=== PATIENT | male | born 1950 | race Caucasian/White ===

== ENCOUNTER 2023-05-21 08:48 | Day surgery (SDC) | payer MEDICARE, BC, SELFPAY ==
[2023-05-21] VITALS (11 sets, daily range): BP systolic 125–160; BP diastolic 76–106; PULSE 65–82; RESP 16–18; TEMP 36.1–37.2; O2SAT 95–100; BMI 29.7
[2023-05-21] MEDS: LACTATED RINGERS 500 ML 500 ML 30 ML IV ×2 (09:15→12:47)
[2023-05-21] MEDS: SODIUM CHLORIDE 0.9 % (FLUSH) 10 ML SYRINGE IVF (09:49)
--- NOTE | 2023-05-21 10:59 | SUR.PREOP ---
TIME?OUT:?1055 PT/RN/MARCI?VERIFICATION?OF?SURGICAL?SITE,?PROCEDURE,?AND?CONSENT OBTAINED?PRIOR?TO?INVASIVE?PROCEDURE.left foot r beti apple mda pt consent
[2023-05-21] MEDS: CEFAZOLIN 2 GM INJ IVP (11:25)
[2023-05-21] MEDS: fentaNYL 100 MCG/2 ML inj IVP (11:32)
[2023-05-21] MEDS: MIDAZOLAM HCL 1 MG/ML inj IVP (11:32)
--- NOTE | 2023-05-21 11:34 | CRLHL7_ITS ---
For Patients: As a result of the Century Cures Act, medical imaging exams and procedure reports are released immediately into your electronic medical record. You may view this report before your referring provider. If you have questions, please contact your health care provider. Fluoroscopy was provided intraoperatively with 1 spot film acquired and 42 seconds of fluoroscopy time utilized. Spot film demonstrates postsurgical changes related to Achilles tendon repair. Dictated by Jon Talavera MD @ 05/23/2023 2:52:47 PM (Electronically Signed)
--- NOTE | 2023-05-21 12:25 | W.PM.NB ---
Nerve Block Nerve Block Time Seen by Provider: 10:59 Date Seen: 05/21/23 Type of block requested by surgeon for post-operative analgesia: popliteal Side: left Time out performed: Yes Verification of patient name: Yes Verification of date of : Yes Site marking: site marked Name of person performing procedure: Justino Continuous monitoring Was continuous monitoring of O2 sat, B/P, night monitor, recorded every 15 minutes?: Yes Procedure Checklist: sterile prep, needles and gloves Ultrasound guided. Images saved: Yes Medications given in 5ml increments after negative aspiration: Ropivicaine %: 0.5 mL: 20 Needle gauge: 22 Patient tolerated procedure well: Yes Additional comments: Needle noted adjacent to nerve Block Charges Block Charge (with Pro Fee): Sciatic Nerve Use of Ultrasound Machine for Block: Yes- US Guidance/pain block
--- NOTE | 2023-05-21 12:26 | W.ANESCHARGE ---
Anesthesia Charges Start Date/Time Anesthesia Start Date: 05/21/23 Anesthesia Start Time: 11:19 Stop Date/Time Anesthesia Stop Date: 05/21/23 Anesthesia Stop Time: 14:05 Summary Extremes of Age - Over 70 or under 1: MDA
--- NOTE | 2023-05-21 14:05 | P.PCN_ITS ---
Procedure Note Date Seen: 05/21/23 Date of procedure: 05/21/23 Will [facility] bill your pro fee for this procedure?: No Pre-op diagnosis: 1. Achilles tendon rupture left Post-op diagnosis: same Procedure: 1. primary repair Achilles tendon rupture left 2. FHL tendon transfer left Procedure Description: Materials: Arthrex Achilles midsubstance repair kit x1, FHL transfer kit x1. Hemostasis: Thigh tourniquet 300 mm Hg Complications: None apparent Indications for surgery: Patient had been healing with Achilles tendon rupture but unfortunately he re-ruptured the tendon necessitating surgical intervention. I reviewed the procedure, recovery, expectations potential complications. This includes but is not limited to: Poor wound healing infection, continued pain, potential need for revision surgery, deep venous thrombosis, pulmonary embolism possible . He understands risks and written consent was obtained. Site was marked. Procedure in detail: Patient was brought the operating room and placed under general anesthesia. He was then log rolled into a prone position on the operating room table. His prepped and draped in a sterile fashion. Standard time-out protocol followed. Left limb was then exsanguinated and the thigh tourniquet inflated. The rupture site was easily palpable 5 cm proximal to the insertion. Linear incision was made directly over the rupture site then gently curved medial extending down onto the medial posterior calcaneus. Incision was carried down through skin subcutaneous tissues. Paratenon was incised and the rupture site identified. Proximal aspect of the tendon had scarred down to the paratenon and this was freed up. Distal stump of the tendon was freshened with a 15 blade. The pars jig was placed through the proximal aspect incision and captured proximal tendon. FiberTape was passed through the jig 1 through 7. Two locking FiberTape sutures as well as 1 nonlocking FiberTape were placed. The suture Passer was placed distally and run through the distal tendon exiting proximally in the central portion of the tendon. The medial sutures were brought down through the tunnel. Stab incision was made with the posterior lateral calcaneus and the suture Passer was placed distally and run through the distal tendon exiting proximally the central portion of the tendon. The lateral sutures were then brought down through the tunnel. Holes were then drilled with anchoring sites they were tapped. With the foot maximally plantar flexed the medial sutures were brought into the osseous tunnel and the SwiveLock inserted. The lateral sutures were then tensioned appropriately and were brought into the osseous tunnel and the SwiveLock anchor was then placed. the rupture site was now in the appropriate approximation. At the rupture site 0 FiberTape was used to place a running nonlocking suture to create additional strength at the rupture site. Next the deep fascia overlying the FHL muscle belly was incised and the muscle was followed distally releasing the fascia until the tendon was identified. With the foot and hallux maximally plantar flexed the tendon was transected with a tenotomy scissors. Guide pin was placed 1 cm anterior to the Achilles insertion on the dorsal calcaneus and angled 1 cm distal to the plantar tubercle. 6.5 mm drill was then used to over drill the guide pin proximally 25 mm. Whipstitch was placed through the FHL tendon and then run through the button. The button was then shuttled down to the plantar calcaneus and visualized under C-arm to be in the appropriate position. The tendon was then tensioned down into the drill hole appropriately. Suture was then tied to the FHL tendon at the drill hole. A 6.5 mm bio tenodesis screw was then placed. Wound was thoroughly irrigated normal sterile saline. Foot was maintained in a plantar flexed position. Deep fascia and paratenon repaired with 3-0 Vicryl. Subcutaneous tissues repaired with 4-0 Monocryl and skin closed with 4-0 Prolene. Sterile dressing was applied and a well-padded [id number] plaster splint placed With the foot in plantar flexed position. patient was transferred from OR to PACU with vital signs stable vascular status intact to the left foot. He will be discharged per Anesthesia. He was given both written and verbal postoperative instructions. He is given oxycodone for pain. He will start aspirin therapy tomorrow. He will follow up in clinic next week. He is strict nonweightbearing. Anesthesia: GETA and regional Surgeon: Keith Rivera DPM FACFAS Estimated blood loss (mL): 2 Pathology: none sent Condition: stable Disposition: PACU
[2023-05-21] MEDS: LACTATED RINGERS 1000 ML 1,000 ML 35 ML IV (14:29)
--- NOTE | 2023-05-21 15:21 | P.ANES_ITS ---
Anesthesia Charges Start Date/Time Anesthesia Start Date: 05/21/23 Anesthesia Start Time: 11:19 Stop Date/Time Anesthesia Stop Date: 05/21/23 Anesthesia Stop Time: 14:05 Summary Extremes of Age - Over 70 or under 1: Z OS [employer]
== END 2023-05-21 15:22 | disposition home or self-care (01) ==
PROVIDERS: PCP Family Medicine; Visit Provider Podiatrist
PROC: (CPT 27650; principal; 2023-05-21 10:30)
DX: S86.012A Strain of left Achilles tendon, initial encounter (principal); G89.18 Other acute postprocedural pain
CPT/HCPCS: 27650; 27691; 01472; 64445; 73600; 76000; 76942; 99100; A4580; C1713; J0330; J0690; J2250; J2704; J2795; J3010; J7120